=== PATIENT | female | born 1950 | race Caucasian/White ===

== ENCOUNTER 2022-08-06 08:03 | Inpatient (IN) ==
[2022-08-06] MEDS ORDERED: Permethrin 1% LOTION 59 ML BTL TOPICAL ONE (08:24)
[2022-08-06 09:05] LABS: ABS Eosinophils 0.2 10^3/ul (0-0.6); ABS Lymphocytes 0.7 10^3/ul (1.0-4.8); ABS Monocytes 0.8 10^3/ul (0-0.8); ABS Neutrophils 9.9 10^3/ul (1.5-7.7); Eosinophil % 1.5 %; Hematocrit 31 % (35-47); Hemoglobin 10.2 g/dL (12.0-16.0); Lymphocyte % 6.2 %; Mean Corpuscular HGB Conc 32 g/dL (31-36); Mean Corpuscular Hemoglobin 30 pg (27-31); Mean Corpuscular Volume 91 fL (80-97); Mean Platelet Volume 7.6 fL (7.4-10.4); Nucleated Red Blood Cells % 0.1; Platelet Count 441 10^3/uL (150-450); Red Blood Count 3.43 10^6 /uL (3.70-4.87); Red Cell Distribution Width 13 % (10-15); White Blood Count 11.6 10^3/uL (3.5-10.8)
[2022-08-06 09:42] LABS: ALT 14 U/L (7-52); Albumin 3.6 g/dL (3.2-5.2); Albumin/Globulin Ratio 1.1 (1-3); Alkaline Phosphatase 65 U/L (35-149); Blood Urea Nitrogen 43 mg/dL (6-24); CO2 Carbon Dioxide 16 mmol/L (22-32); Calcium 9.2 mg/dL (8.6-10.3); Globulin 3.4 g/dL (2-4); Glucose 157 mg/dL (70-100); Sodium 140 mmol/L (135-145); eGFR CKD-EPI 11.1 (>60)
[2022-08-06 09:55] LABS: Anion Gap 11 mmol/L (2-11); Chloride 113 mmol/L (101-111)
[2022-08-06] MEDS ORDERED: Lactated Ringers 1000 ml BAG 1,000 ML IV ONE (09:59)
[2022-08-06] MEDS ORDERED: Morphine 4 MG/ML VIAL (1 ml) IV ONE (10:19)
[2022-08-06] MEDS ORDERED: NS 0.9% 1000 ml BAG 1,000 ML IV SCH (12:45)
[2022-08-06 12:52] LABS: Potassium Redraw 4.6 mmol/L (3.5-5.0)
[2022-08-06 13:14] LABS: Creatine Kinase 371 U/L (10-223)
[2022-08-06] MEDS ORDERED: Permethrin 5% CREAM 1 TUBE TOPICAL ONE (13:57)
[2022-08-06 14:34] LABS: TSH Ultra Thyroid Stim Horm 0.99 mcIU/mL (0.34-5.60)
[2022-08-06 14:45] LABS: Vitamin B12 1346 pg/mL (180-914)
[2022-08-06 14:48] LABS: Vitamin D Total 25(OH) 15.2 ng/mL (20-50)
[2022-08-06] MEDS: Heparin 5000 UNITS/ML 1 mL VIAL SUBCUT SCH (15:30)
[2022-08-06] MEDS ORDERED: Dextrose 50% Syringe 50 ml 25 GM/50 ML SYRINGE IV PUSH PRN (15:41)
[2022-08-06 16:55] LABS: Magnesium 1.5 mg/dL (1.9-2.7)
[2022-08-06] MEDS ORDERED: Magnesium Sulfate IV 3 GM in NS 0.9% 100 ml BAG 100 ML IVPB ONE (17:00)
[2022-08-06] MEDS: Calamine LOTION BTL TOPICAL SCH (18:08)
[2022-08-07] MEDS: Lactated Ringers 1000 ml BAG 1,000 ML IV SCH ×2 (00:09→10:20)
[2022-08-07] MEDS: Calamine LOTION BTL TOPICAL SCH ×3 (00:10→13:05)
[2022-08-07] MEDS: Heparin 5000 UNITS/ML 1 mL VIAL SUBCUT SCH ×4 (06:33→21:10)
[2022-08-07 07:14] LABS: ABS Basophils 0.1 10^3/ul (0-0.2); ABS Eosinophils 0.8 10^3/ul (0-0.6); ABS Lymphocytes 1.2 10^3/ul (1.0-4.8); ABS Monocytes 0.7 10^3/ul (0-0.8); ABS Neutrophils 4.9 10^3/ul (1.5-7.7); Eosinophil % 10.9 %; Hematocrit 26 % (35-47); Hemoglobin 8.7 g/dL (12.0-16.0); Lymphocyte % 15.5 %; Mean Corpuscular HGB Conc 33 g/dL (31-36); Mean Corpuscular Hemoglobin 30 pg (27-31); Mean Corpuscular Volume 92 fL (80-97); Nucleated Red Blood Cells % 0.1; Platelet Count 369 10^3/uL (150-450); Red Blood Count 2.86 10^6 /uL (3.70-4.87); Red Cell Distribution Width 13 % (10-15); White Blood Count 7.7 10^3/uL (3.5-10.8)
[2022-08-07 07:28] LABS: Calcium 8.7 mg/dL (8.6-10.3); eGFR CKD-EPI 11.9 (>60)
[2022-08-07 07:29] LABS: Potassium 5.3 mmol/L (3.5-5.0)
[2022-08-07] MEDS ORDERED: Dextrose 50% Syringe 50 ml 25 GM/50 ML SYRINGE IV PUSH PRN (08:24)
[2022-08-07] MEDS ORDERED: Nitroglycerin 0.2 mg/hr PATCH (5 mg) TRANSDERM SCH (09:00)
[2022-08-07] MEDS: Aspirin EC 81 mg TAB.EC (enteric coated) PO SCH (11:17)
[2022-08-07 14:23] LABS: HDL Cholesterol 30.3 mg/dL
[2022-08-07] MEDS: Sodium Bicarb 650 mg (ANTACID) TAB PO SCH ×2 (15:25→21:10)
[2022-08-07] MEDS: Calamine/Pramoxine LOTION 8%/1% 180 ML TOPICAL SCH ×2 (18:01→21:10)
[2022-08-08] MEDS: hydrALAZINE 20 mg/ml 1 ML Vial IV IV SLOW PU PRN (00:14)
[2022-08-08] MEDS: Lactated Ringers 1000 ml BAG 1,000 ML IV SCH (04:55)
[2022-08-08] MEDS: Heparin 5000 UNITS/ML 1 mL VIAL SUBCUT SCH ×3 (06:08→21:13)
[2022-08-08 06:37] LABS: Hematocrit 26 % (35-47); Hemoglobin 8.9 g/dL (12.0-16.0); Mean Corpuscular HGB Conc 34 g/dL (31-36); Mean Corpuscular Hemoglobin 30 pg (27-31); Mean Corpuscular Volume 91 fL (80-97); Mean Platelet Volume 7.7 fL (7.4-10.4); Platelet Count 353 10^3/uL (150-450); Red Blood Count 2.92 10^6 /uL (3.70-4.87); Red Cell Distribution Width 13 % (10-15); White Blood Count 8.4 10^3/uL (3.5-10.8)
[2022-08-08 06:52] LABS: Calcium 8.4 mg/dL (8.6-10.3); Magnesium 1.9 mg/dL (1.9-2.7); Potassium 4.8 mmol/L (3.5-5.0); eGFR CKD-EPI 13.2 (>60)
[2022-08-08] MEDS: Aspirin EC 81 mg TAB.EC (enteric coated) PO SCH (08:19)
[2022-08-08] MEDS: Sodium Bicarb 650 mg (ANTACID) TAB PO SCH ×3 (08:19→21:12)
[2022-08-08] MEDS: Calamine/Pramoxine LOTION 8%/1% 180 ML TOPICAL SCH ×4 (08:21→21:13)
[2022-08-08 10:54] LABS: Ferritin 138.8 ng/mL (11-307)
[2022-08-08 19:45] LABS: Urine Appearance Turbid; Urine Bilirubin Negative (Negative); Urine Blood 2+ (Negative); Urine Color Yellow; Urine Glucose Negative (Negative); Urine Ketones Negative (Negative); Urine Nitrite Negative (Negative); Urine Protein 2+(100 mg/dL) (Negative); Urine Specific Gravity 1.013 (1.002-1.030); Urine Urobilinogen Negative (Negative)
[2022-08-08 19:57] LABS: Urine Bacteria Absent (Absent); Urine Red Blood Cell 2+(6-10/hpf) (Absent); Urine Squamous Epithelial Cell Present (Absent); Urine White Blood Cell 3+(>20/hpf) (Absent)
[2022-08-09] MEDS: hydrALAZINE 20 mg/ml 1 ML Vial IV IV SLOW PU PRN (00:18)
[2022-08-09] MEDS: Heparin 5000 UNITS/ML 1 mL VIAL SUBCUT SCH ×3 (06:31→22:20)
[2022-08-09 07:23] LABS: Hematocrit 26 % (35-47); Hemoglobin 8.6 g/dL (12.0-16.0); Mean Corpuscular HGB Conc 34 g/dL (31-36); Mean Corpuscular Hemoglobin 31 pg (27-31); Mean Corpuscular Volume 92 fL (80-97); Mean Platelet Volume 7.6 fL (7.4-10.4); Platelet Count 310 10^3/uL (150-450); Red Cell Distribution Width 12 % (10-15); White Blood Count 8.1 10^3/uL (3.5-10.8)
[2022-08-09 08:00] LABS: Calcium 8.3 mg/dL (8.6-10.3); Magnesium 1.8 mg/dL (1.9-2.7); Potassium 4.4 mmol/L (3.5-5.0); eGFR CKD-EPI 13.9 (>60)
[2022-08-09] MEDS ORDERED: Magnesium Sulfate 2 gm BAG 2 GM/50 ML BAG IVPB ONE (08:03)
[2022-08-09] MEDS: Aspirin EC 81 mg TAB.EC (enteric coated) PO SCH (08:22)
[2022-08-09] MEDS: Sodium Bicarb 650 mg (ANTACID) TAB PO SCH ×3 (08:22→22:21)
[2022-08-09] MEDS: Calamine/Pramoxine LOTION 8%/1% 180 ML TOPICAL SCH ×4 (08:23→22:22)
[2022-08-10] MEDS: Heparin 5000 UNITS/ML 1 mL VIAL SUBCUT SCH ×3 (06:34→22:19)
[2022-08-10 06:47] LABS: ABS Eosinophils 0.9 10^3/ul (0-0.6); ABS Lymphocytes 1.3 10^3/ul (1.0-4.8); ABS Monocytes 0.7 10^3/ul (0-0.8); ABS Neutrophils 4.2 10^3/ul (1.5-7.7); Hematocrit 25 % (35-47); Hemoglobin 8.6 g/dL (12.0-16.0); Lymphocyte % 18.5 %; Mean Corpuscular HGB Conc 34 g/dL (31-36); Mean Corpuscular Hemoglobin 31 pg (27-31); Mean Corpuscular Volume 90 fL (80-97); Mean Platelet Volume 7.6 fL (7.4-10.4); Nucleated Red Blood Cells % 0.1; Platelet Count 305 10^3/uL (150-450); Red Blood Count 2.81 10^6 /uL (3.70-4.87); Red Cell Distribution Width 13 % (10-15); White Blood Count 7.1 10^3/uL (3.5-10.8)
[2022-08-10 06:56] LABS: Calcium 8.1 mg/dL (8.6-10.3); Potassium 4.2 mmol/L (3.5-5.0); eGFR CKD-EPI 13.6 (>60)
[2022-08-10] MEDS: Aspirin EC 81 mg TAB.EC (enteric coated) PO SCH (07:21)
[2022-08-10] MEDS: Sodium Bicarb 650 mg (ANTACID) TAB PO SCH ×3 (07:21→20:47)
[2022-08-10] MEDS: Calamine/Pramoxine LOTION 8%/1% 180 ML TOPICAL SCH ×4 (07:22→20:49)
[2022-08-10] MEDS: cefTRIAXone 1 gm/50 mL D5W 1 GM/50 ML BAG IV SCH (13:01)
[2022-08-11] MEDS: Heparin 5000 UNITS/ML 1 mL VIAL SUBCUT SCH ×3 (06:54→23:52)
[2022-08-11 07:14] LABS: Calcium 8.3 mg/dL (8.6-10.3); Magnesium 1.9 mg/dL (1.9-2.7); Potassium 4.5 mmol/L (3.5-5.0); eGFR CKD-EPI 13.7 (>60)
[2022-08-11] MEDS: Aspirin EC 81 mg TAB.EC (enteric coated) PO SCH (08:54)
[2022-08-11] MEDS: Sodium Bicarb 650 mg (ANTACID) TAB PO SCH ×2 (08:54→14:11)
[2022-08-11] MEDS: Calamine/Pramoxine LOTION 8%/1% 180 ML TOPICAL SCH ×4 (08:55→23:52)
[2022-08-11 10:21] LABS: Hematocrit 26 % (35-47); Hemoglobin 8.7 g/dL (12.0-16.0)
[2022-08-11] MEDS: Magnesium Hydroxide LIQ 30 ML UDC PO SCH ×2 (11:55→23:52)
[2022-08-11] MEDS: cefTRIAXone 1 gm/50 mL D5W 1 GM/50 ML BAG IV SCH (12:11)
[2022-08-12 05:27] LABS: Hematocrit 26 % (35-47); Hemoglobin 8.6 g/dL (12.0-16.0); Mean Corpuscular HGB Conc 34 g/dL (31-36); Mean Corpuscular Hemoglobin 30 pg (27-31); Mean Corpuscular Volume 91 fL (80-97); Platelet Count 314 10^3/uL (150-450); Red Blood Count 2.84 10^6 /uL (3.70-4.87); Red Cell Distribution Width 12 % (10-15)
[2022-08-12 05:54] LABS: Calcium 8.3 mg/dL (8.6-10.3); Magnesium 2.2 mg/dL (1.9-2.7); Potassium 4.6 mmol/L (3.5-5.0); eGFR CKD-EPI 12.5 (>60)
[2022-08-12] MEDS: Heparin 5000 UNITS/ML 1 mL VIAL SUBCUT SCH ×3 (07:27→21:28)
[2022-08-12] MEDS: Magnesium Hydroxide LIQ 30 ML UDC PO SCH ×2 (10:20→21:27)
[2022-08-12] MEDS: Aspirin EC 81 mg TAB.EC (enteric coated) PO SCH (10:21)
[2022-08-12] MEDS: Calamine/Pramoxine LOTION 8%/1% 180 ML TOPICAL SCH ×4 (10:30→21:29)
[2022-08-12] MEDS: cefTRIAXone 1 gm/50 mL D5W 1 GM/50 ML BAG IV SCH (12:06)
[2022-08-12] MEDS ORDERED: Magnesium Sulfate 2 gm BAG 2 GM/50 ML BAG IVPB ONE (14:54)
[2022-08-12] MEDS ORDERED: Ondansetron 4 mg VIAL 2 MG/ML 2 ml VIAL IV ONE (18:23)
[2022-08-12] MEDS ORDERED: Ondansetron 4 mg VIAL 2 MG/ML 2 ml VIAL IV PRN (18:23)
[2022-08-13] MEDS: Lidocaine PATCH 5% PATCH TRANSDERM SCH ×2 (00:33→09:30)
[2022-08-13] MEDS ORDERED: Morphine 2 MG/ML SYRINGE IV ONE (01:23)
[2022-08-13 06:11] LABS: ABS Eosinophils 0.6 10^3/ul (0-0.6); ABS Lymphocytes 1.3 10^3/ul (1.0-4.8); ABS Monocytes 0.9 10^3/ul (0-0.8); ABS Neutrophils 6.3 10^3/ul (1.5-7.7); Eosinophil % 6.5 %; Hematocrit 26 % (35-47); Hemoglobin 8.6 g/dL (12.0-16.0); Lymphocyte % 14.2 %; Mean Corpuscular HGB Conc 33 g/dL (31-36); Mean Corpuscular Hemoglobin 30 pg (27-31); Mean Corpuscular Volume 91 fL (80-97); Mean Platelet Volume 7.7 fL (7.4-10.4); Platelet Count 303 10^3/uL (150-450); Red Blood Count 2.89 10^6 /uL (3.70-4.87); Red Cell Distribution Width 13 % (10-15); White Blood Count 9.1 10^3/uL (3.5-10.8)
[2022-08-13] MEDS: Heparin 5000 UNITS/ML 1 mL VIAL SUBCUT SCH (06:17)
[2022-08-13 06:35] LABS: Calcium 8.5 mg/dL (8.6-10.3); Magnesium 3.1 mg/dL (1.9-2.7); Potassium 4.4 mmol/L (3.5-5.0); eGFR CKD-EPI 12.1 (>60)
[2022-08-13] MEDS: Aspirin EC 81 mg TAB.EC (enteric coated) PO SCH (09:20)
[2022-08-13] MEDS: Calamine/Pramoxine LOTION 8%/1% 180 ML TOPICAL SCH (09:21)
[2022-08-13] MEDS ORDERED: Lactated Ringers 1000 ml BAG 1,000 ML IV ONE (09:33)
[2022-08-13 11:51] VITALS: BP 135/61
== END 2022-08-13 09:38 | DRG 65 ==
LOC: ED 08:03 → EDHOLD 08:03 → MEDTELE 22:00 → SUATTDRO 08-07 13:54
PROVIDERS: ADMIT Hospitalist; ATTEND Internal Medicine

== ENCOUNTER 2022-08-13 06:57 | Inpatient (IN) ==
[2022-08-13] MEDS ORDERED: Magnesium Hydroxide LIQ 30 ML UDC PO PRN (16:38)
[2022-08-13] MEDS ORDERED: Senna TAB 8.6 mg TAB PO PRN (16:38)
[2022-08-13] MEDS ORDERED: Dextrose 50% Syringe 50 ml 25 GM/50 ML SYRINGE IV PUSH PRN (16:47)
[2022-08-13] MEDS: Heparin 5000 UNITS/ML 1 mL VIAL SUBCUT SCH (22:03)
[2022-08-14] MEDS: Heparin 5000 UNITS/ML 1 mL VIAL SUBCUT SCH ×3 (05:24→21:30)
[2022-08-14] MEDS: Aspirin EC 81 mg TAB.EC (enteric coated) PO SCH (09:25)
[2022-08-14] MEDS: Nystatin SUSPENSION 100,000 UNITS/ML UDC PO SCH ×2 (17:23→21:30)
[2022-08-15] MEDS: Heparin 5000 UNITS/ML 1 mL VIAL SUBCUT SCH ×3 (05:57→22:13)
[2022-08-15 07:08] LABS: ABS Basophils 0.1 10^3/ul (0-0.2); ABS Lymphocytes 1.6 10^3/ul (1.0-4.8); ABS Monocytes 0.8 10^3/ul (0-0.8); ABS Neutrophils 4.5 10^3/ul (1.5-7.7); Hematocrit 26 % (35-47); Hemoglobin 8.6 g/dL (12.0-16.0); Lymphocyte % 20.3 %; Mean Corpuscular HGB Conc 33 g/dL (31-36); Mean Corpuscular Hemoglobin 31 pg (27-31); Mean Corpuscular Volume 91 fL (80-97); Platelet Count 293 10^3/uL (150-450); Red Blood Count 2.83 10^6 /uL (3.70-4.87); Red Cell Distribution Width 13 % (10-15)
[2022-08-15 08:00] LABS: Albumin 2.9 g/dL (3.2-5.2); Albumin/Globulin Ratio 1.2 (1-3); Calcium 8.5 mg/dL (8.6-10.3); Globulin 2.5 g/dL (2-4); Potassium 4.9 mmol/L (3.5-5.0); Total Bilirubin 0.4 mg/dL (0.2-1.0); Total Protein 5.4 g/dL (6.4-8.9); eGFR CKD-EPI 11.2 (>60)
[2022-08-15] MEDS ORDERED: Pneumococcal Vac 23-Polyvalent IM ONE (09:00)
[2022-08-15] MEDS ORDERED: Influenza vaccine *QUAD* *2022-23* 0.5 ML SYRINGE IM ONE (09:00)
[2022-08-15] MEDS: Aspirin EC 81 mg TAB.EC (enteric coated) PO SCH (10:06)
[2022-08-15] MEDS: Nystatin SUSPENSION 100,000 UNITS/ML UDC PO SCH ×4 (10:08→19:28)
[2022-08-16] MEDS: Heparin 5000 UNITS/ML 1 mL VIAL SUBCUT SCH (06:43)
[2022-08-16 08:47] VITALS: BP 164/70
[2022-08-16] MEDS ORDERED: NS 0.9% 500 ml BAG 500 ML IV SCH (12:00)
[2022-08-16 12:53] LABS: PCO2 Arterial 32 mmHg (35-45); PO2 Arterial 98 mmHg (80-100)
[2022-08-16] MEDS ORDERED: Lorazepam PYXIS KEY ONE (12:53)
[2022-08-16] MEDS ORDERED: LORazepam 2 mg VIAL 1 ml ONE (12:53)
[2022-08-16 13:38] LABS: ABS Eosinophils 0.1 10^3/ul (0-0.6); ABS Monocytes 0.7 10^3/ul (0-0.8); ABS Neutrophils 6.9 10^3/ul (1.5-7.7); Eosinophil % 1.3 %; Hematocrit 28 % (35-47); Hemoglobin 9.2 g/dL (12.0-16.0); Lymphocyte % 11.6 %; Mean Corpuscular HGB Conc 33 g/dL (31-36); Mean Corpuscular Hemoglobin 30 pg (27-31); Mean Corpuscular Volume 91 fL (80-97); Mean Platelet Volume 8.5 fL (7.4-10.4); Platelet Count 361 10^3/uL (150-450); Red Cell Distribution Width 13 % (10-15); White Blood Count 8.7 10^3/uL (3.5-10.8)
[2022-08-16 13:54] LABS: Albumin 3.3 g/dL (3.2-5.2); Albumin/Globulin Ratio 1.2 (1-3); Calcium 8.7 mg/dL (8.6-10.3); Globulin 2.7 g/dL (2-4); Potassium 4.8 mmol/L (3.5-5.0); Total Bilirubin 0.4 mg/dL (0.2-1.0); eGFR CKD-EPI 11.7 (>60)
[2022-08-16] MEDS: Aspirin EC 81 mg TAB.EC (enteric coated) PO SCH (18:33)
[2022-08-16] MEDS: Nystatin SUSPENSION 100,000 UNITS/ML UDC PO SCH (18:34)
[2022-08-17] MEDS ORDERED: Pneumococcal Vac 23-Polyvalent IM ONE (09:00)
== END 2022-08-16 12:55 | disposition short-term general hospital (02) | DRG 57 ==
LOC: PMRU 14:00 → UNDODISIN 08-16 13:46
PROVIDERS: ADMIT Physical Medicine & Rehabilitation; ATTEND Physical Medicine & Rehabilitation

== ENCOUNTER 2022-08-16 12:56 | Inpatient (IN) ==
[2022-08-16] MEDS ORDERED: Dextrose 50% Syringe 50 ml 25 GM/50 ML SYRINGE IV PUSH PRN (15:26)
[2022-08-16] MEDS ORDERED: levETIRAcetam IV 1,500 MG in NS 0.9% 100 ml BAG 100 ML IVPB ONE (15:30)
[2022-08-16 19:11] LABS: Urine Appearance Clear; Urine Bilirubin Negative (Negative); Urine Blood 1+ (Negative); Urine Color Yellow; Urine Glucose 1+(50 mg/dL) (Negative); Urine Ketones Negative (Negative); Urine Nitrite Negative (Negative); Urine Protein 2+(100 mg/dL) (Negative); Urine Specific Gravity 1.017 (1.002-1.030); Urine Urobilinogen Negative (Negative)
[2022-08-16 19:20] LABS: Urine Bacteria Absent (Absent); Urine Red Blood Cell Trace(0-2/hpf) (Absent); Urine Squamous Epithelial Cell Present (Absent); Urine White Blood Cell Trace(0-5/hpf) (Absent)
[2022-08-16] MEDS: Heparin 5000 UNITS/ML 1 mL VIAL SUBCUT SCH (20:32)
[2022-08-16] MEDS: Lactated Ringers 1000 ml BAG 1,000 ML IV SCH (21:00)
[2022-08-16] MEDS ORDERED: Labetalol IV 5 MG/ML 20 ml VIAL IV PUSH PRN (23:14)
[2022-08-17] MEDS: levETIRAcetam 500 MG IVPREMIX 500 MG/100 ML BAG IV SCH ×2 (00:23→13:17)
[2022-08-17 05:31] LABS: ABS Basophils 0.1 10^3/ul (0-0.2); ABS Eosinophils 0.4 10^3/ul (0-0.6); ABS Lymphocytes 1.3 10^3/ul (1.0-4.8); ABS Monocytes 0.6 10^3/ul (0-0.8); ABS Neutrophils 4.7 10^3/ul (1.5-7.7); Eosinophil % 5.7 %; Hematocrit 26 % (35-47); Hemoglobin 8.2 g/dL (12.0-16.0); Lymphocyte % 18.3 %; Mean Corpuscular HGB Conc 32 g/dL (31-36); Mean Corpuscular Hemoglobin 30 pg (27-31); Mean Corpuscular Volume 93 fL (80-97); Mean Platelet Volume 8.3 fL (7.4-10.4); Nucleated Red Blood Cells % 0.1; Platelet Count 328 10^3/uL (150-450); Red Blood Count 2.77 10^6 /uL (3.70-4.87); Red Cell Distribution Width 13 % (10-15); White Blood Count 7.1 10^3/uL (3.5-10.8)
[2022-08-17 06:01] LABS: Calcium 8.3 mg/dL (8.6-10.3); Magnesium 2.7 mg/dL (1.9-2.7); eGFR CKD-EPI 12.4 (>60)
[2022-08-17] MEDS: Heparin 5000 UNITS/ML 1 mL VIAL SUBCUT SCH ×2 (08:21→20:35)
[2022-08-17] MEDS ORDERED: Aspirin EC 81 mg TAB.EC (enteric coated) PO SCH (09:00)
[2022-08-17] MEDS ORDERED: hydrALAZINE 20 mg/ml 1 ML Vial IV IV SLOW PU ONE (13:50)
[2022-08-17] MEDS ORDERED: Dextrose 50% Syringe 50 ml 25 GM/50 ML SYRINGE IV PUSH PRN (15:36)
[2022-08-17] MEDS ORDERED: Pantoprazole VIAL 40 MG VIAL IV SCH (16:00)
[2022-08-17 17:32] LABS: Calcium 8.4 mg/dL (8.6-10.3); Potassium 4.7 mmol/L (3.5-5.0); eGFR CKD-EPI 12.9 (>60)
[2022-08-17] MEDS: Lactated Ringers 1000 ml BAG 1,000 ML IV SCH (17:44)
[2022-08-17] MEDS: hydrALAZINE 20 mg/ml 1 ML Vial IV IV SLOW PU SCH (20:05)
[2022-08-17] MEDS: Nystatin TOP POWDER 15 GM BTL TOPICAL SCH (21:12)
[2022-08-18] MEDS: levETIRAcetam 500 MG IVPREMIX 500 MG/100 ML BAG IV SCH (00:01)
[2022-08-18] MEDS: hydrALAZINE 20 mg/ml 1 ML Vial IV IV SLOW PU SCH (02:12)
[2022-08-18 05:14] LABS: ABS Basophils 0.1 10^3/ul (0-0.2); ABS Eosinophils 0.5 10^3/ul (0-0.6); ABS Lymphocytes 1.2 10^3/ul (1.0-4.8); ABS Monocytes 0.6 10^3/ul (0-0.8); ABS Neutrophils 6.1 10^3/ul (1.5-7.7); Eosinophil % 5.7 %; Hematocrit 25 % (35-47); Hemoglobin 8.3 g/dL (12.0-16.0); Lymphocyte % 14.5 %; Mean Corpuscular HGB Conc 33 g/dL (31-36); Mean Corpuscular Hemoglobin 30 pg (27-31); Mean Corpuscular Volume 91 fL (80-97); Mean Platelet Volume 8.5 fL (7.4-10.4); Nucleated Red Blood Cells % 0.1; Platelet Count 357 10^3/uL (150-450); Red Blood Count 2.74 10^6 /uL (3.70-4.87); Red Cell Distribution Width 13 % (10-15); White Blood Count 8.5 10^3/uL (3.5-10.8)
[2022-08-18 05:48] LABS: Calcium 8.6 mg/dL (8.6-10.3); Magnesium 2.6 mg/dL (1.9-2.7); Potassium 4.5 mmol/L (3.5-5.0); eGFR CKD-EPI 13.2 (>60)
[2022-08-18] MEDS ORDERED: Lorazepam PYXIS KEY PRN (08:50)
[2022-08-18] MEDS: Nystatin TOP POWDER 15 GM BTL TOPICAL SCH ×3 (09:10→21:53)
[2022-08-18] MEDS: Scopolamine 1 mg/72hr PATCH TRANSDERM SCH (09:10)
[2022-08-18] MEDS: LORazepam 2 mg VIAL 1 ml IV PUSH PRN (11:19)
[2022-08-18] MEDS: Morphine ORAL CONCENTRATE 5 MG/0.25 ML ORAL.SYRIN SL PRN (18:27)
[2022-08-19] MEDS: Morphine ORAL CONCENTRATE 5 MG/0.25 ML ORAL.SYRIN SL PRN (03:25)
[2022-08-19] MEDS: Nystatin TOP POWDER 15 GM BTL TOPICAL SCH ×3 (13:10→20:53)
[2022-08-20] MEDS: Nystatin TOP POWDER 15 GM BTL TOPICAL SCH ×3 (15:15→23:04)
[2022-08-20] MEDS: Atropine 1% (ORAL/SL) 15 ML BTL SL PRN (21:15)
[2022-08-21] MEDS: Scopolamine 1 mg/72hr PATCH TRANSDERM SCH (08:32)
[2022-08-21] MEDS: Morphine ORAL CONCENTRATE 5 MG/0.25 ML ORAL.SYRIN SL PRN ×3 (08:36→17:24)
[2022-08-21] MEDS: Nystatin TOP POWDER 15 GM BTL TOPICAL SCH ×3 (09:08→21:00)
[2022-08-22] MEDS: Nystatin TOP POWDER 15 GM BTL TOPICAL SCH ×3 (10:36→20:50)
[2022-08-23 07:49] VITALS: BP 122/72
[2022-08-23] MEDS: Nystatin TOP POWDER 15 GM BTL TOPICAL SCH ×3 (08:25→21:13)
[2022-08-23] MEDS ORDERED: Dextran 70/Hypromellose Tears Eye Drops 15 ml BTL (for Artificials Tears) BOTH EYES SCH (11:00)
[2022-08-23] MEDS: Dextran 70/Hypromellose Tears Eye Drops 15 ml BTL (for Artificials Tears) BOTH EYES SCH ×4 (11:09→21:12)
[2022-08-24] MEDS: Morphine ORAL CONCENTRATE 5 MG/0.25 ML ORAL.SYRIN SL PRN ×10 (08:03→20:06)
[2022-08-24] MEDS: Nystatin TOP POWDER 15 GM BTL TOPICAL SCH ×3 (08:12→20:07)
[2022-08-24] MEDS: Dextran 70/Hypromellose Tears Eye Drops 15 ml BTL (for Artificials Tears) BOTH EYES SCH ×4 (08:19→19:44)
[2022-08-24] MEDS: Scopolamine 1 mg/72hr PATCH TRANSDERM SCH (08:19)
[2022-08-24] MEDS: LORazepam 2 mg VIAL 1 ml IV PUSH PRN (09:00)
[2022-08-24] MEDS: Atropine 1% (ORAL/SL) 15 ML BTL SL PRN ×3 (09:30→19:40)
[2022-08-25] MEDS: Morphine ORAL CONCENTRATE 5 MG/0.25 ML ORAL.SYRIN SL PRN ×3 (02:42→05:45)
== END 2022-08-25 05:58 | disposition expired | DRG 65 ==
LOC: SUATTDRO 12:56 → INTOOBSV 14:21 → ICU 14:21 → OBSVTOIN 14:39 → ICU 14:52 → SSU 08-18 08:33
PROVIDERS: ADMIT Internal Medicine; ATTEND Internal Medicine